=== PATIENT | male | born 1960 | race Caucasian/White ===

== ENCOUNTER 2024-06-01 23:50 | Inpatient (IN) | payer BC, MEDICARE, SELFPAY ==
[2024-06-01 17:23] VITALS: BP 170/100
[2024-06-01 17:41] LABS: % Eosinophils 4.5 % (0-6); % Immature Granulocytes 0.3 % (0-0.5); % Lymphocytes 20.2 % (20.5-51.1); % Monocytes 9.8 % (1.7-9.3); % Neutrophils 64.2 % (42.2-75.2); Absolute Basophils 0.1 10^3/uL (0-0.2); Absolute Eosinophils 0.3 10^3/uL (0-0.7); Absolute Lymphocytes 1.4 10^3/uL (1.2-3.4); Absolute Monocytes 0.7 10^3/uL (0.1-0.6); Absolute Neutrophils 4.3 10^3/uL (1.4-6.5); Hematocrit 43.1 % (39.0-52.0); Mean Corp Hgb Conc. 34.8 g/dL (33.0-37.0); Mean Corpuscular Hgb 33.1 pg (27.0-31.0); Mean Corpuscular Volume 95.1 fL (80.0-94.0); Mean Platelet Volume 9.5 fL (7.4-10.4); Nucleated Red Blood Cells % 0 % (-); Platelet Count 302 10^3/uL (130-400); Red Blood Cell Count 4.53 10^6/uL (4.70-6.10); Red Cell Dist. Width 13.4 % (11.5-14.5); White Blood Cell Count 6.7 10^3/uL (4.8-10.8)
[2024-06-01 17:54] LABS: ALT (SGPT) 36 U/L (0-50); AST (SGOT) 40 U/L (17-59); Albumin 4.4 g/dl (3.5-5.0); Alkaline Phosphatase 62 U/L (38-126); Blood Urea Nitrogen 20 mg/dl (9-20); Calcium 9.4 mg/dl (8.4-10.2); Carbon Dioxide 30 mmol/L (22-30); Chloride 99 mmol/L (98-107); Glucose 126 mg/dl (70-99); Lipase 152 U/L (23-300); Potassium 4.7 mmol/L (3.5-5.1); Sodium 136 mmol/L (135-145); Total Bilirubin 1.3 mg/dl (0.2-1.3); Total Protein 6.8 g/dl (6.3-8.2); eGFR > 60.00
[2024-06-01 21:38] VITALS: BMI 28.7
--- NOTE | 2024-06-01 22:25 | ED.GENMED ---
History of Present Illness
General
Chief Complaint: Abdominal Pain
Time Seen by Provider: 06/01/24 21:32
History of Present Illness
History of Present Illness:
64-year-old male presents to the emergency department for evaluation of right-sided abdominal pain that began after eating a playa bowl for lunch today. Pain gradually worsening throughout the day. No fevers chills or sweats. No prior abdominal
surgeries. No vomiting or diarrhea.
Past History
Past History
ED Past Medical History: Arrthythmia (Paroxysmal atrial fibrillation), Cancer (Skin), Hypercholesterolemia and Other (Osteoarthritis)
ED Past Surgical History: Orthopedic and Urological (Varicocele)
Social History
Tobacco: Non-smoker
Alcohol: Occasional
Personal:
Living: with family
Employment: Employed
Family History
Family History: Negative Early CAD
Review of Systems
Review of Systems
Allergies reviewed?: Yes
All Other Systems: ROS reviewed and negative except as documented in HPI and ROS
Phy Exam
Physical Exam
Physical Exam:
GEN: Well appearing, NAD, WDWN
HEENT: Oral mucosa moist, no scleral icterus
Cardiac: Regular rate
Lung: No respiratory distress, no tachypnea
Abdomen: Soft, moderate tenderness to the right upper quadrant with positive Nava sign, no rigidity or peritonitis
MSK: No gross deformity or injuries
Skin: Good color, no pallor or jaundice, no rashes
Neuro: AO x3, moves all extremities freely
Psych: Calm, cooperative
Course
Orders/Labs/Results
Orders:
Orders
06/01/24 17:30
Complete Blood Count/With Diff Urgent
Comprehensive Metabolic Panel Urgent
Lipase Urgent
06/01/24 22:24
US Abdomen Complete/Upper Urgent
Comment:
Reason For Exam: RUQ pain
06/01/24 23:16
HYDROmorphone [Dilaudid] 0.5 mg IV NOW STA
Piperacillin/Tazo 3.375 Gram [Zosyn] 3.375 gram in 50 ml IV NOW
06/01/24 23:33
Admit/Transfer Patient As Directed
Co-Sign Provider:
Level of Care: Inpatient admission
Assign to:: Telemetry
Physician / Group: doreen
Diagnosis: acute cholecystitis
Reason for Telemetry: Arrhythmia
Date to Stop Telemetry: 06/04/24
Time to Stop Telemetry: 11:00
Reason for Hospitalization: acute cholecystitis
Expected length of stay greater than two midnights?: Yes
ELOS- Estimated Length of Stay in days: 3
I certify the patient meets the requirements for IP care: Yes
PRN Pain Medication Management As Directed
May give lesser potent ordered pain med per pt: Yes
preference::
Protocol:: Medication orders for pain may be administered in a
manner that supports deferring to patient preference
when the pt is:
- Requesting an ordered lesser potent pain medication.
Least to most potent pain medications are defined
as: acetaminophen < NSAID < tramadol < opioids
(morphine, oxycodone, hydromorphone).
- Requesting a lesser dose of the same medication IF
ORDERED.
- Requesting a less intrusive route of administration
if both routes are prescribed by the provider (PO <
IV).
06/01/24 23:34
Code Status As Directed
Resuscitation Status: Full Code
06/01/24 23:37
EKG [Electrocardiogram (*1)] Stat
Reason for Study: Atrial Fibrillation
06/02/24 01:27
0.9% Sodium Chloride 1000 ml [Nss] 1,000 ml IV 80 mls/hr
Acetaminophen [Tylenol] 650 mg PO Q4HPRN PRN
Bisacodyl [Dulcolax] 10 mg RECTAL [id number] PRN
Docusate W/Senna [Senokot-S] 1 tablet PO BIDPRN PRN
HYDROmorphone [Dilaudid] 1 mg IV Q4HPRN PRN
Ondansetron Injectable [Zofran] 4 mg IV Q6HPRN PRN
Polyethylene Glycol Powder [Miralax] 17 grams PO DAILYPRN PRN
06/02/24 01:27
SURGICAL CONSULT Routine
Consulting Provider: Natna Hylton
Was physician already notified: Yes
Activity As Directed
Activity Level: As Tolerated
Pneumatic Compression Sleeves As Directed
Type: Knee high
Vital Signs As Directed
Frequency: Per unit guidelines
DX Deep Vein Thrombosis Video Routine
06/02/24 02:00
Piperacillin/Tazo 3.375 Gram [Zosyn] 3.375 gram in 50 ml IV Q6H
06/02/24 Breakfast
NPO
Allow oral meds: Yes
Allow clear liquids: No
06/02/24 12:00
Rosuvastatin Calcium [Crestor] 20 mg PO NOON
06/02/24 22:00
Metoprolol Xl [Toprol Xl] 25 mg PO HS
06/04/24 11:00
DC Protocol for Telemetry ONCE
Abnormal Lab Results
06/01/24
17:30
RBC 4.53 L 10^6/uL
(4.70-6.10)
MCV 95.1 H fL
(80.0-94.0)
MCH 33.1 H pg
(27.0-31.0)
Absolute Monos (auto) 0.7 H 10^3/uL
(0.1-0.6)
Lymphocytes % 20.2 L %
(20.5-51.1)
Monocytes % 9.8 H %
(1.7-9.3)
Glucose 126 H mg/dl
(70-99)
06/01/24 17:30
06/01/24 17:30
Vital Signs
Initial and Last Documented VS:
Initial Vital Signs
Temp Pulse Resp BP Pulse Ox
98.1 F 66 19 170/100 99
06/01/24 17:23 06/01/24 17:23 06/01/24 17:23 06/01/24 17:23 06/01/24 17:23
Last Documented Vital Signs
Temp Pulse Resp BP Pulse Ox
98.8 F 87 17 145/83 97
06/02/24 01:20 06/02/24 01:20 06/02/24 01:20 06/02/24 01:20 06/02/24 01:20
MDM/Problems Addressed
MDM/Problems Addressed:
Workup reveals acute cholecystitis, will admit to the hospitalist service due to multiple medical comorbidities, IV antibiotics initiated
*Critical Care Note
Total Time (30-74mins, 75-104mins- exclusive of procedures): Not Applicable
ED Attending Note
-
Portions of this chart may have been created with voice recognition software.� Occasional wrong word or��sound alike� substitutions may have occurred due to the inherent limitations of voice recognition software.
Discharge Plan
Departure
Patient Disposition: Admit
Date of Disposition: 06/01/24
Time of Disposition: 23:15
Presentation/result/management discussed w/ accepting MD/DO: Hospitalist
Discharge Problem:
Acute cholecystitis
Interventions
Interventions:
*Risk Screen - Suicide Last Done: 06/02/24 01:32
*General Assessment Last Done: 06/01/24 17:23
*Neglect/Abuse Screening Last Done: 06/01/24 17:23
*ED COVID-19 Vaccine History Last Done: 06/02/24 01:32
*Nursing Disposition Last Done: 06/02/24 01:15
SE-Rzhjxu-Hwudaxvoic Assessment Last Done: 06/01/24 21:38
Discharge Date and Time
Discharge Date/Time: 06/02/24 01:15
--- NOTE | 2024-06-01 23:18 | HPS.HSE ---
Addendum entered and electronically signed by Magno Lopez DO 06/01/24 23:57:
Patient seen and examined independently. Agree with findings and plan as set forth by LAURIE Martins.
Patient is a 64y M with PMH significant for hypertension, RA and PA-Fib who presents to ED complaining of RUQ abdominal pain. Pain started after lunch today. Patient states that discomfort progressed throughout the day and he developed shaking
chills.
Patient presented to the ED for evaluation where CT Scan showed evidence of acute cholecystitis.
Ass:
Acute Calculous Cholecystitis
Benign Hypertension
Rheumatoid Arthritis
Paroxysmal Atrial Fibrillation
Plan:
Admit for further evaluation and treatment.
IV abx, pain control, IVFs, etc.
Surgery evaluation for additional recommendations.
Hold MTX and Remicade acutely.
Patient is not on chronic OAC despite PA-Fib diagnosis.
Continue metoprolol with holding parameters.
Original Note:
Family Physician
-
Family Physician: Ahsan De La Cruz
Chief Complaint
-
right sided abdominal pain
History of Present Illness
64-year-old male with PMH for paroxysmal atrial fib, HTn, RA, HLD presents to the emergency department for evaluation of right-sided abdominal pain that began after eating a playa bowl for lunch today. Pain gradually worsening throughout the day.
No fevers. stated chills and COLBY. stated some nausea. denied vomiting and diarrhea. denied dizzy or syncope. denied chest pain, sob. denied dysuria or hematuria.
CT with acute cholecystitis. received Zosyn and Dilaudid in the ER. admitting for further management.
Medical History
Past Medical History
Past Medical History: Reports Other
Additional Past Medical History:
BPH
HLD
RA
paroxysmal atrial fib
b/l carotid stenosis
htn
Past Surgical History: Reports Other
Additional Past Surgical History:
tonsillectomy
ankle surgery
knee surgery
stage 1 melanoma removed
Social History
Tobacco: Non-smoker
Alcohol: Occasional
Drug: None
Personal:
Living: With Family
Family History
Family History: Not pertinent
Allergies / Home Medications
Allergies reflects when Allergies were last updated in [facility].
Home Medications with original date entered in [facility]
Allergy/Medication List:
Allergies
Allergy/AdvReac Type Severity Reaction Status Date / Time
shellfish derived Allergy swelling Verified 11/24/18 15:22
of eyes
and throat
Home Medications
acetaminophen 500 mg tablet (Tylenol Extra Strength) 1,000 mg PO Q6HPRN PRN mild pain 06/01/24
cholecalciferol (vitamin D3) 50 mcg (2,000 unit) tablet (Vitamin D3) 50 mcg PO DAILY 06/01/24
folic acid 1 mg tablet 1 mg PO DAILY 06/01/24
infliximab 100 mg intravenous solution (Remicade) 0 mg IV Q8W 06/01/24
methotrexate sodium 2.5 mg tablet 10 mg PO TH 06/01/24
metoprolol succinate 25 mg tablet,extended release 24 hr 25 mg PO HS 06/01/24
rosuvastatin 20 mg tablet 20 mg PO NOON 06/01/24
sildenafil 100 mg tablet 100 mg PO DAILYPRN PRN ed 06/01/24
Review of Systems
-
Constitutional: Reports No Symptoms
EENT: Reports No Symptoms
Respiratory: Reports No Symptoms
Cardiac: Reports No Symptoms
Abdomen/GI: Reports Abdominal Pain and Nausea
: Reports No Symptoms
Musculoskeletal: Reports No Symptoms
Skin: Reports No Symptoms
Neurological: Reports No Symptoms
Endocrine: Reports No Symptoms
Hematologic/Lymphatic: Reports No Symptoms
Psych: Reports No Symptoms
Physical Exam
Vital Signs
Vital Signs
Temp Pulse Resp BP Pulse Ox
98.1 F 66 19 170/100 99
06/01/24 17:23 06/01/24 17:23 06/01/24 17:23 06/01/24 17:23 06/01/24 17:23
Physical Exam
General: Well Developed, Well Nourished and No Apparent Distress
HEENT: NormoCephalic, Moist mucous membranes and Atraumatic
Respiratory: Clear
Cardiac: S1/S2 and Regular Rhythm; No Murmur or Rub
GI: Soft, Non Distended, Normal Bowel Sounds and Tender; No Organomegaly
Rectal: Deferred by Provider
Musculoskeletal: No Clubbing, No Cyanosis and No Edema
Skin: No Rash
Neuro: AO x 3 and Nonfocal/grossly intact
Psych: Calm
Laboratory Results
-
06/01/24 17:30
06/01/24 17:30
Laboratory Results
Total Bilirubin 1.3 mg/dl (0.2-1.3) 06/01/24 17:30
AST 40 U/L (17-59) 06/01/24 17:30
ALT 36 U/L (0-50) 06/01/24 17:30
Alkaline Phosphatase 62 U/L (38-126) 06/01/24 17:30
Lipase 152 U/L (23-300) 06/01/24 17:30
Data Reviewed
-
CT Scan: Report Reviewed by me
Lab Data: Labs Reviewed by me
Impression/Plan
-
#acute cholecystitis
-keep patient NPO
-fluids continued for hydration
-Zosyn continued
-Dilaudid prn for pain
-Zosyn prn for n/v
-surgery consulted
-abdominal US with Gallstones with associated mild gallbladder wall thickening. This can be seen with acute cholecystitis. Clinical and laboratory correlation recommended.Nonvisualization of pancreas, proximal IVC and abdominal aorta.Hepatic fatty
infiltration.
#paroxysmal atrial fib
-obtain EKG
-metoprolol continued
-not on AC
#RA
-on Remicade and methotrexate
#HLD
-Crestor continued
#DVT prophylaxis
-scd
#CODE status
-full code
[2024-06-01 23:27] VITALS: BP 152/88
--- NOTE | 2024-06-01 23:41 | EDRN ---
This RN unable to complete electronic med administration due to message stating 'We are sorry, but some of the information managed by this screen is currently being updated by: shirlene martin.' Provider no longer here at this time.
0.5mg IV diluadid administered at 2328
3.375mf IV zosyn administered at 2331
[2024-06-02] VITALS (11 sets, daily range): BP systolic 95–145; BP diastolic 49–83; BMI 29.4
--- NOTE | 2024-06-02 01:29 | PTCARENOTE ---
Pt arrive to [facility] at 0115 from the ED in a wheelchair and walked into bed. Full head to toe complete. Skin CDI. SCDs set up on pt. Pt oriented to room and call mendoza. Bed locked and in lowest position. Care ongoing.
[2024-06-02] MEDS: NSS 1000 IV ×2 (01:53→17:34)
[2024-06-02] MEDS: DILAUDID 1 MG IV (02:51)
[2024-06-02] MEDS: ZOSYN 50 IV ×3 (05:51→17:32)
--- NOTE | 2024-06-02 08:42 | W.PN.HOSP.TC ---
Today's Communication/Plan
-
Laparoscopic Cholecystectomy as per surgery
follow up post-op recommendations.
Assessment / Plan
Assessment / Plan
64-year-old male with PMH for paroxysmal atrial fib, HTn, RA, HLD presents to the emergency department for evaluation of right-sided abdominal pain that began shortly after eating. Pain gradually worsening throughout the day with associate nausea.
CT with acute cholecystitis. received Zosyn and Dilaudid in the ER. Admitted for further management.
#acute cholecystitis
-NPO
-IVF
-Zosyn continued
-Dilaudid prn for pain
-Zosyn prn for n/v
-abdominal US with Gallstones with associated mild gallbladder wall thickening. This can be seen with acute cholecystitis. Clinical and laboratory correlation recommended.Nonvisualization of pancreas, proximal IVC and abdominal aorta.Hepatic fatty
infiltration.
-surgery consult appreciated for OR today 06/02/24 Laparoscopic cholecystectomy
#paroxysmal atrial fib
-EKG appreciated NSR
-metoprolol continued
-not on AC
#RA
-on Remicade and methotrexate
#HLD
-Crestor continued
#DVT prophylaxis
-scd
#CODE status
-full code
I spent a total of 35 minutes with the patient or on the floor. More than 50% of this time involved counseling and coordination of care.
Anticipated Discharge: 24 - 48 hours
Subjective/Interval History
-
Date of Service: June 02, 2024
Not seen, patient away in OR at time of evaluation. Records reviewed and orders updated as necessary.
Objective Data
-
Vital Signs:
Vital Signs
Temp Pulse Resp BP Pulse Ox
98.2 F 78 18 117/64 98
06/02/24 08:00 06/02/24 08:00 06/02/24 08:00 06/02/24 08:00 06/02/24 08:00
I&O
06/01/24 06/02/24 06/03/24
06:59 06:59 06:59
Intake Total 400 / 400
Balance 400 / 400
--- NOTE | 2024-06-02 09:03 | CON.GS ---
Consultation
-
Date/Time Consultation Requested: 06/02/2024 1 AM
Date/Time Consultation Performed: 06/02/2024 8 AM
Requesting Provider: Hospitalist
Performing Provider: Dr. Ulloa
Reason for Consultation: Acute cholecystitis
Medical History
-
Chief Complaint: Right upper quadrant abdominal pain
History of Present Illness:
This is a 64-year-old male with a history of rheumatoid arthritis on methotrexate and Remicade as well as paroxysmal atrial fibrillation not on anticoagulation who presents with a 1 day history of postprandial right upper quadrant pain. Has not had
any similar symptoms previously. He had an ultrasound here which demonstrated multiple gallstones and mild gallbladder wall thickening. The patient denies Fever, Chest Pain, Shortness Of Breath, Nausea, Vomiting, changes in urinary and bowel
habits, unintentional weight loss, jaundice, icterus, acolic stools.
Past Medical History
Past Medical History: Other (RA, hypertension, paroxysmal A-fib)
Past Surgical History: None
Social History
Tobacco: Non-Smoker
Alcohol: None
Drug: None
Personal:
Living: With Family
Family History
Family History: Reviewed & Not Pertinent
Allergies / Home Medications
Allergy/AdvReac Type Severity Reaction Status Date / Time
shellfish derived Allergy swelling Verified 11/24/18 15:22
of eyes
and throat
�Medication �Instructions �Recorded �Confirmed �Type
acetaminophen 500 mg tablet 1,000 mg PO Q6HPRN PRN mild pain 06/01/24 06/01/24 History
(Tylenol Extra Strength)
cholecalciferol (vitamin D3) 50 50 mcg PO DAILY 06/01/24 06/01/24 History
mcg (2,000 unit) tablet (Vitamin
D3)
folic acid 1 mg tablet 1 mg PO DAILY 06/01/24 06/01/24 History
infliximab 100 mg intravenous 0 mg IV Q8W 06/01/24 06/01/24 History
solution (Remicade)
methotrexate sodium 2.5 mg tablet 10 mg PO TH 06/01/24 06/01/24 History
metoprolol succinate 25 mg 25 mg PO HS 06/01/24 06/01/24 History
tablet,extended release 24 hr
rosuvastatin 20 mg tablet 20 mg PO NOON 06/01/24 06/01/24 History
sildenafil 100 mg tablet 100 mg PO DAILYPRN PRN ed 06/01/24 06/01/24 History
Review of Systems
-
All other systems: Negative unless noted
A 10 point review of systems was completed, and was negative except as per HPI.
Physical Exam
Vital Signs
Temp Pulse Resp BP Pulse Ox
98.2 F 78 18 117/64 98
06/02/24 08:00 06/02/24 08:00 06/02/24 08:00 06/02/24 08:00 06/02/24 08:00
06/01/24 06/02/24 06/03/24
06:59 06:59 06:59
Actual Weight 92.805 kg
Body Mass Index (BMI) 29.4
Lab Results
06/01/24 17:30
06/01/24 17:30
WBC 6.7 10^3/uL (4.8-10.8) 06/01/24 17:30
Hgb 15.0 g/dL (13.0-18.0) 06/01/24 17:30
Hct 43.1 % (39.0-52.0) 06/01/24 17:30
Plt Count 302 10^3/uL (130-400) 06/01/24 17:30
Abs Immat Gran (auto) 0.0 10^3/uL (0-0.05) 06/01/24 17:30
Neutrophils % 64.2 % (42.2-75.2) 06/01/24 17:30
Physical Exam
General: Well Developed
HEENT: Normocephalic
Respiratory: Non Labored Respirations
GI: Soft, Non Distended and Tender
Data Reviewed
-
CT Scan: Image Personally Visualized and interpreted
Ultrasound: Image Personally Visualized and interpreted and Discussed with Patient
Labs: Labs Reviewed by me and Discussed with Patient
Total Time Spent with Patient (in minutes): 50
Assessment / Plan
-
This is a 64-year-old male who presents with a 1 day history of postprandial right upper quadrant pain. Exam, blood work, imaging all consistent with early acute cholecystitis.
Recommended surgical removal of the gallbladder with a laparoscopic cholecystectomy.
Patient is somewhat tentative, we did discuss different alternatives including nonoperative management with just antibiotics alone. I explained this is a high risk for failure, complications, morbidity and even mortality. Patient wishes to discuss
this further with his .
For now we will continue with nonoperative management, n.p.o., IV fluids, IV antibiotics.
General surgery will continue to follow. If patient wishes to pursue surgery, would plan for OR today.
I spent 60 minutes in total for the care of this patient today including direct patient care and counseling, reviewing labs, imaging, coordination of care, as well as documentation.
--- NOTE | 2024-06-02 11:55 | CM ---
Alert awake oriented patient who lives with his Geno who lives in a 3 story home with 2 step to enter and bed and bathroom on first floor. He is independent in driving and in all activities of daily living [employer]PATCH[employer] .Pt for surgery today spoke with
. She declined VN when offered.
No VN hx / No SNF history
Pharmacy [facility] [address] Yap
PLAN Home Declined VN
[2024-06-02] MEDS: CRESTOR PO (12:03)
--- NOTE | 2024-06-02 14:30 | W.SUR.PREOP ---
Pre-Operative Surgical Note
-
I have examined this patient prior to the performance of the scheduled procedure.
The patient's condition is unchanged from the time of the current History and
Physical and the patient is able to undergo the scheduled procedure.
--- NOTE | 2024-06-02 15:50 | W.IMMPOSTOP ---
Surgical Immed Post Op Note
-
Primary Surgeon: Eduard Ulloa MD
Assisting Surgeon: None
Pre-op Diagnosis: Acute cholecystitis
Post-op Diagnosis: Gangrenous cholecystitis
Procedure Performed: 1. Laparoscopic cholecystectomy with cholangiogram
Anesthesia Type: General
Specimen / Cultures: Gallbladder and contents
Estimated Blood Loss: 3 cc
Complications: None
Operative Findings: Gangrenous cholecystitis. Critical view of safety obtained prior to a cholangiogram which demonstrated no filling defects. The cystic duct is taken with a clip followed by a 0 PDS Endoloop. Minimal spillage of bile
POST OP PLAN:
Imaging: None
Labs: Routine AM
Diet: Advance to Regular as tolerated
Analgesia: Tylenol 650mg q6 Yareli, Clarissa 5mg q6 PRN, Dilaudid 0.5mg q2h PRN
Neuro/vascular checks: q4h
AC/AP: Hold Therapeutic AC, Ok for DVT PPx
Activity: Ad Melinda
Wound/Incisions/Drains: Routine
Abx: Will cover with 4 days of antibiotics.
Dispo: RNF, anticipate discharge home tomorrow.
--- NOTE | 2024-06-02 15:53 | OR.RPT ---
Operative Report
Operative Report
Patient Name: Jose Woods
: 1960
Date of Operation: 06/02/2024
Preoperative Diagnosis: Acute cholecystitis
Postoperative Diagnosis: Gangrenous cholecystitis
Procedure(s):
Laparoscopic Cholecystectomy with Cholangiogram
Surgeon(s):
Dr. Ulloa
Fish And Wildlife Warden(s):
GABBI Billy
Anesthesia: General
Estimated Blood Loss: 3 cc
Urine Output: None
Drains/Lines/Implants: None
Specimens:
1. Gallbladder and contents
HPI/Surgical Indications:
This is a 64-year-old male who presents with a few days of right upper quadrant abdominal pain. Exam, labs and imaging are consistent with acute cholecystitis. Risks/Benefits/Alternatives were discussed at length, and the patient eventually agreed
to proceed with surgery.
Operative Findings: Gangrenous cholecystitis. Critical view of safety obtained prior to a cholangiogram which demonstrated no filling defects. The cystic duct is taken with a clip followed by a 0 PDS Endoloop. Minimal spillage of bile
Procedure Description:
The patient was brought to the Operating Room and placed in the supine position with one arm tucked. Following uneventful induction of general endotracheal anesthesia, an orogastric tube was placed. The abdomen was prepped and draped in the usual
sterile fashion. A timeout was performed confirming the procedure, consent, and that IV antibiotics were infused and sequential compression devices were confirmed to be on. The abdomen was entered using an infraumbilical open Chandra technique with
a 12 mm balloon-tipped trocar. Pneumoperitoneum to 15 mmHg pressure was obtained without difficulty and we confirmed that no injury had occurred during our entry. The patient was positioned in reverse Trendelenberg and rotated with the right side
up slightly. Three (3) 5mm trocars were then placed along the right subcostal margin. The gallbladder was emptied using a decompressing needle through the fundus of the gallbladder with evacuation of hydrops before A locking grasping forceps was
placed on the fundus of the gallbladder where it was then retracted cephalad and to the right. The gallbladder was noted to be gangrenous with patchy areas of necrosis throughout the visualized wall. Using appropriate grasping instruments, the
peritoneum overlying the triangle of Calot was incised and extended superiorly on both the anterior and posterior gallbladder richardson. The infundibulum was dissected off the cystic plate. The cystic triangle was dissected until a critical view of
safety was achieved. The cystic artery was medialized, dissected and controlled with 2 proximal clips and 1 distal. The cystic duct/gallbladder junction in turn was identified, dissected circumferentially and a clip was placed. A ductotomy was made
and a cholangiocatheter on an Yang clamp was inserted into the cystic duct. A C-arm was draped and brought into the field. An intra-operative cholangiogram was performed and though the initial run leaked, the second run was noted to have:
No filling defects in the biliary tree
No significant biliary dilation
Brisk flow of contrast into the duodenum
Normal biliary anatomy
The catheter was then removed and the cystic duct was controlled with a clip followed by a 0 PDS Endoloop. After ensuring both the artery and duct were divided, the gallbladder was freed from the liver using electrocautery. There was some spillage
of bile, but no spillage of stones. The gallbladder bed was inspected and excellent hemostasis was obtained. The gallbladder was extracted through the 12 mm trocar site using an endocatch bag. The abdomen was again irrigated and excellent
hemostasis was assured. All remaining trocars were then removed and the pneumoperitoneum was evacuated. The 12 mm trocar site was closed using 0 PDS suture. We confirmed laparoscopically that the closure was airtight and no underlying bowel had
been cotton or suture. All trocar sites were closed at the skin level using 4-0 Monocryl followed by Dermabond. Overall, the patient tolerated the procedure well and was taken to the Recovery Room postoperatively in stable condition.
I was the attending physician and performed the procedure with assistance from the INCIDENT ANALYST above. I was present for all portions of the case
Eduard Ulloa MD
--- NOTE | 2024-06-02 17:17 | PTCARENOTE ---
Pt returned to 2S in bed. Abdominal lap sites C/D/I, glued and BLADE BALANCER. Pt educated on regular diet, verbalized understanding. IVF infusing per order. Bed locked and in the lowest position, safety maintained. Oriented to room and call mendoza, spouse at
bedside.
[2024-06-02] MEDS: TOPROL XL 25 MG PO (21:24)
[2024-06-03] MEDS: ZOSYN 50 IV ×3 (00:07→13:01)
[2024-06-03 03:10] VITALS: BP 95/55
[2024-06-03 06:13] LABS: Hemoglobin 13.1 g/dL (13.0-18.0); Mean Corp Hgb Conc. 33.6 g/dL (33.0-37.0); Mean Corpuscular Hgb 32.5 pg (27.0-31.0); Mean Corpuscular Volume 96.8 fL (80.0-94.0); Mean Platelet Volume 9.6 fL (7.4-10.4); Platelet Count 233 10^3/uL (130-400); Red Blood Cell Count 4.03 10^6/uL (4.70-6.10); Red Cell Dist. Width 13.6 % (11.5-14.5); White Blood Cell Count 9.8 10^3/uL (4.8-10.8)
[2024-06-03 06:40] LABS: ALT (SGPT) 43 U/L (0-50); AST (SGOT) 43 U/L (17-59); Albumin 3.4 g/dl (3.5-5.0); Alkaline Phosphatase 65 U/L (38-126); Blood Urea Nitrogen 15 mg/dl (9-20); Calcium 8.7 mg/dl (8.4-10.2); Carbon Dioxide 27 mmol/L (22-30); Chloride 102 mmol/L (98-107); Estimated Creatinine Clearance 94 ml/min; Glucose 143 mg/dl (70-99); Magnesium 2.6 mg/dl (1.6-2.3); Phosphorus 2.9 mg/dl (2.5-4.5); Potassium 4.4 mmol/L (3.5-5.1); Sodium 135 mmol/L (135-145); Total Bilirubin 2.5 mg/dl (0.2-1.3); Total Protein 5.7 g/dl (6.3-8.2); eGFR > 60.00
[2024-06-03 07:11] VITALS: BP 123/66
[2024-06-03] MEDS: NSS IV (09:31)
[2024-06-03 11:28] VITALS: BP 126/72
--- NOTE | 2024-06-03 11:28 | W.PN.GS2 ---
Today's Communication / Plan
-
DC home after recheck of his LFTs to confirm his bilirubin is decreasing
Assessment / Plan
-
This is a 64-year-old male with a history of Gilbert's syndrome who presents with 1 day history of postprandial right upper quadrant pain found to have acute cholecystitis. Now postoperative day 1 from a laparoscopic cholecystectomy and
cholangiogram for gangrenous cholecystitis. Doing well, expected postoperative course.
His bilirubin is slightly elevated to 2.5 but I suspect this is likely from his Gilbert's disease. Will recheck his LFTs this afternoon to confirm.
Otherwise clinically well, anticipate discharge home today.
Time Spent
Total Time Spent with Patient (in minutes): 20
Subjective Data
-
Date of Service: June 03, 2024
Interval Events:
No acute events overnight. Slept well. Pain Controlled. Denies Nausea/Vomiting, +bowel function. Tolerating diet.
Objective Data
-
Intake and Output
06/02/24 06/03/24 06/04/24
06:59 06:59 06:59
Intake Total 400 / 400 3000 / 3000
Balance 400 / 400 3000 / 3000
Intake:
Oral fluids 1280 / 1280
IV fluids (Total) 400 / 400 1520 / 1520
IV piggybacks 200 / 200
Other:
Number of approximated MODERATE 1 3
amounts of urine
Vital Signs
Temp Pulse Resp BP Pulse Ox
98.0 F 64 16 123/66 97
06/03/24 07:11 06/03/24 07:11 06/03/24 07:11 06/03/24 07:11 06/03/24 07:11
Lab Results
06/03/24 05:38
Calcium 8.7 mg/dl (8.4-10.2) 06/03/24 05:38
Phosphorus 2.9 mg/dl (2.5-4.5) 06/03/24 05:38
Magnesium 2.6 mg/dl (1.6-2.3) H 06/03/24 05:38
Total Bilirubin 2.5 mg/dl (0.2-1.3) H D 06/03/24 05:38
AST 43 U/L (17-59) 06/03/24 05:38
ALT 43 U/L (0-50) 06/03/24 05:38
Alkaline Phosphatase 65 U/L (38-126) 06/03/24 05:38
Total Protein 5.7 g/dl (6.3-8.2) L 06/03/24 05:38
Albumin 3.4 g/dl (3.5-5.0) L 06/03/24 05:38
Physical Exam
-
GENERAL/NEURO: Awake, Alert, no distress
CHEST: Unlabored breathing on RA
ABDOMEN: Soft, Non-Tender, Non-Distended, incisions clean dry and intact.
--- NOTE | 2024-06-03 12:18 | W.PN.HOSP.TC ---
Addendum entered and electronically signed by Krupa Madrid MD 06/03/24 16:54:
Repeat LFT results discussed with surgeon mild increase in bilirubin noted. As per discussion, patient otherwise stable for discharge with repeat lab work recommended in 2-3 days (script provided to facilitate)
Original Note:
Today's Communication/Plan
-
discharge
Assessment / Plan
Assessment / Plan
Physical Exam
General: Well Developed, Well Nourished and No Apparent Distress
HEENT: NormoCephalic, Moist mucous membranes and Atraumatic
Respiratory: Clear
Cardiac: S1/S2 and Regular Rhythm; No Murmur or Rub
GI: Soft, Non Distended, Bowel sounds present. Mild tenderness laparoscopic surgical site umbilical area.
Musculoskeletal: No Clubbing, No Cyanosis and No Edema
Skin: No Rash
Neuro: AO x 3 and Nonfocal/grossly intact
Psych: Calm
64-year-old male with PMH for paroxysmal atrial fib, HTn, RA, HLD presents to the emergency department for evaluation of right-sided abdominal pain that began shortly after eating. Pain gradually worsening throughout the day with associate nausea.
CT with acute cholecystitis. received Zosyn and Dilaudid in the ER. Admitted for further management.
#acute cholecystitis
#gangrenous cholecystitis
-abdominal US with Gallstones with associated mild gallbladder wall thickening. This can be seen with acute cholecystitis. Clinical and laboratory correlation recommended.Nonvisualization of pancreas, proximal IVC and abdominal aorta.Hepatic fatty
infiltration.
-surgery consult appreciated s/p Laparoscopic cholecystectomy 06/02/24
-Tolerating regular diet
-IVF completed
-Zosyn completed
-Pain and nausea free
#Mild Bilirubin elevation noted post-procedure, likely Gilbert's Syndrome
repeat CMP in 2-3 days recommended, results to be forwarded to primary care provider and surgeon (script provided to facilitate)
#hx paroxysmal atrial fib
-EKG appreciated NSR
-metoprolol continued
-not on AC
#RA
-on Remicade and methotrexate
#HLD
-Crestor continued
#DVT prophylaxis
-scd
#CODE status
-full code
Medically stable for discharge home with outpatient follow up recommendations.
Total Time Preparing Discharge ___40____ minutes including examination of the patient, summary of the hospital stay, instructions for continuing care to all relevant caregivers; and preparation of discharge records, prescriptions, and referral
forms if necessary.
Anticipated Discharge: Today
Subjective/Interval History
-
Date of Service: June 03, 2024
Seen and examined at bedside in no acute distress. Reports overall feeling well. Pain resolved. Ambulating without issues. Eager to go home.
Objective Data
-
Labs:
Laboratory Results
06/03/24 06/03/24
05:38 12:46
WBC 9.8
Hgb 13.1
Hct 39.0
Plt Count 233 D
Sodium 135 Pending
Potassium 4.4 Pending
Chloride 102 Pending
Carbon Dioxide 27 Pending
BUN 15 Pending
Creatinine 0.8 Pending
Glucose 143 H Pending
Calcium 8.7 Pending
Total Bilirubin 2.5 H D Pending
AST 43 Pending
ALT 43 Pending
Alkaline Phosphatase 65 Pending
Vital Signs:
Vital Signs
Temp Pulse Resp BP Pulse Ox
97.9 F 66 14 126/72 96
06/03/24 11:28 06/03/24 11:28 06/03/24 11:28 06/03/24 11:28 06/03/24 11:28
I&O
06/02/24 06/03/24 06/04/24
06:59 06:59 06:59
Intake Total 400 / 400 3000 / 3000
Balance 400 / 400 3000 / 3000
[2024-06-03] MEDS: CRESTOR 20 MG PO (13:01)
[2024-06-03 13:03] LABS: ALT (SGPT) 47 U/L (0-50); AST (SGOT) 48 U/L (17-59); Alkaline Phosphatase 76 U/L (38-126); Blood Urea Nitrogen 14 mg/dl (9-20); Calcium 9.2 mg/dl (8.4-10.2); Carbon Dioxide 27 mmol/L (22-30); Chloride 101 mmol/L (98-107); Estimated Creatinine Clearance 94 ml/min; Glucose 101 mg/dl (70-99); Potassium 4.4 mmol/L (3.5-5.1); Sodium 136 mmol/L (135-145); Total Bilirubin 2.7 mg/dl (0.2-1.3); Total Protein 6.6 g/dl (6.3-8.2); eGFR > 60.00
[2024-06-03 15:29] VITALS: BP 131/67
--- NOTE | 2024-06-03 16:54 | W.DCSUMMARY ---
Discharge Summary
Discharge Data
Date of Admission: 06/01/24
Date of Discharge: 06/03/24
-
Pending Results: No
Hospital Course
64-year-old male with PMH for paroxysmal atrial fib, HTn, RA, HLD presented to the emergency department for evaluation of right-sided abdominal pain that began shortly after eating. Pain gradually worsening throughout the day with associate
nausea. CT with acute cholecystitis. received Zosyn and Dilaudid in the ER. Admitted for further management. Acute gangrenous cholecystitis, abdominal US with Gallstones associated mild gallbladder wall thickening, correlated with acute
cholecystitis. Nonvisualization of pancreas, proximal IVC and abdominal aorta. Hepatic fatty infiltration. Surgery evaluated and performed Laparoscopic cholecystectomy 06/02/24. Tolerating regular diet following procedure. IVF support
completed. Empiric Zosyn completed. Mild Bilirubin elevation noted post-procedure, likely Gilbert's Syndrome
repeat CMP in 2-3 days recommended, results to be forwarded to primary care provider and surgeon (script provided to facilitate). Symptomatically improved, medically stable, patient was discharged home with outpatient follow up recommendations.
Discharge Plan
-
Patient Disposition: Home (Routine Discharge)
Discharge Diagnosis/Procedures: Acute cholecystitis. Laparoscopic cholecystectomy
Condition: Good
Diet: No restrictions
Activity: No strenuous activity
Driving Restrictions: As prior to admission
Bathing Restrictions: OK to Shower
Blood Work: Please repeat CMP in 2-3 days of discharge. Results to be forwarded to primary care provider and surgeon. Script provided to facilitate
Activity Restrictions/Additional Instructions:
Please follow up with primary care provider in 1 week of discharge and surgeon in 2-4 weeks.
Instructions following Laparoscopic Cholecystectomy
Please call [phone] if you have any questions or concerns after your surgery.
Wound Care:
Your incisions are covered with skin glue which will come off on its own in 5-10 days.
It is ok to shower the day after your surgery. Do not scrub the incisions, let soap and water wash over them and pat dry.
� Bruising around your incisions is normal.
� Using ice packs will help minimize this swelling.
� No swimming or soaking incisions for 1 week.
� Your stitches will dissolve and do not need to be removed.
Urinary retention:
If you are unable to urinate 6-8 hours after your surgery, please call [phone] to discuss further management.
Activity:
No heavy lifting more than 15 pounds for the next 3 weeks, then you may gradually lift heavier objects as tolerated by discomfort. Otherwise activity as tolerated by your comfort level.
Pain Management:
Use Tylenol, ibuprofen and ice packs to treat your pain.
� You may take 650 milligrams of Tylenol (Max 3 grams per day) every 6 hours, and 600 mg of ibuprofen also every 6 hours. (you can alternate them every 3 hours)
� You may use an ice pack to your incision as needed.
� If you still have pain not controlled by these measures, take your prescription pain medication as prescribed.
Medications:
You may resume your home medications.
Bowel Medications:
Prescription pain medication can make you constipated. If you take this medication, also take colace 100 mg twice daily (this is over the counter). If this is not sufficient, you may take Miralax (polyethylene glycol) to help move your bowels.
Diet:
After your procedure, there are no dietary restrictions. However, you may notice some loose stools with fatty meals for up to 4 weeks after surgery. If this is the case, please adjust to a low fat diet as needed.
Driving restrictions:
No driving if you are taking prescription pain medication or if you think your normal reaction time and attentiveness has been slowed by your surgery.
Things to Look out for:
Worsening Abdominal pain, fever, jaundice, redness or drainage from incision
Call Doctor for:
Please call if you notice worsening redness or drainage from incision(s) lasting longer than 5 days after your surgery, any foul-smelling drainage from the incision, pain not controlled by pain medications, persistent nausea and vomiting, or for any
fevers greater than 101.3 F. The number for questions/concerns is [phone]
Follow-up:
A follow-up appointment will be scheduled with your surgeon in 3-4 weeks. Please call prior to your appointment if you have any questions or concerns. [phone]
Referrals:
Ahsan De La Cruz I., [Family Provider] - in one week
Eduard Ulloa MD [Active] - in two to four weeks
Prescriptions:
New
acetaminophen 325 mg tablet
650 mg PO Q6HPRN PRN (Reason: mild pain) Qty: 14 0RF
tramadol 50 mg tablet
25 mg PO Q6HPRN PRN (Reason: severe pain/breakthrough pain) Qty: 8 0RF
ibuprofen 600 mg tablet
600 mg PO Q6H PRN (Reason: pain) Qty: 14 0RF
Continued
acetaminophen [Tylenol Extra Strength] 500 mg Tablet
1,000 mg PO Q6HPRN PRN (Reason: mild pain)
sildenafil 100 mg Tablet
100 mg PO DAILYPRN PRN (Reason: ed)
methotrexate sodium 2.5 mg Tablet
10 mg PO TH
infliximab [Remicade] 100 mg Recon Soln
0 mg IV Q8W
folic acid 1 mg Tablet
1 mg PO DAILY
metoprolol succinate 25 mg Tablet Extended Release 24 Hr
25 mg PO HS
rosuvastatin 20 mg Tablet
20 mg PO NOON
cholecalciferol (vitamin D3) [Vitamin D3] 50 mcg (2,000 unit) Tablet
50 mcg PO DAILY
Discharge Orders:
Discharge Patient (As Directed); Ordered 06/03/24
Ordered By: Krupa Madrid
Discharge Date and Time
Discharge Date/Time: 06/03/24 17:30
Print Language: VENEZUEL[place]
== END 2024-06-03 17:30 | disposition home or self-care (01) | DRG 419 ==
LOC: 2 SOUTH 23:50
PROVIDERS: Physician Assistant; ADMITTING PHYSICIAN Hospitalist; ATTENDING PHYSICIAN Internal Medicine; EMERGENCY PHYSICIAN Emergency Medicine; FAMILY PHYSICIAN Internal Medicine; OTHER PHYSICIAN Surgery
PROC: 0FT44ZZ Resection of Gallbladder, Percutaneous Endoscopic Approach (ICD-10-PCS; 2024-06-02)
DX: K80.00 Calculus of gallbladder with acute cholecystitis without obstruction (principal); I48.0 Paroxysmal atrial fibrillation; I10 Essential (primary) hypertension; M06.9 Rheumatoid arthritis, unspecified; E78.00 Pure hypercholesterolemia, unspecified
CPT/HCPCS: 88304; 74300; 76000; 76700; 80053; 83690; 83735; 84100; 85025; 85027; 93005; 99285; A4300

== ENCOUNTER → 2024-09-08 13:50 | Outpatient (REF) | payer BC, SELFPAY | LOC: HWRCS 13:50 | PROVIDERS: ATTENDING PHYSICIAN Internal Medicine Cardiovascular Disease; FAMILY PHYSICIAN Internal Medicine | DX: I77.810 Thoracic aortic ectasia (principal); I65.23 Occlusion and stenosis of bilateral carotid arteries | CPT/HCPCS: 93306; 93880 ==

== ENCOUNTER → 2024-11-16 10:52 | Outpatient (REF) | payer BC, SELFPAY ==
[2024-11-16 11:19] LABS: % Basophils 1.5 % (0-2); % Immature Granulocytes 0.2 % (0-0.5); % Lymphocytes 28.7 % (20.5-51.1); % Neutrophils 51.6 % (42.2-75.2); Absolute Basophils 0.1 10^3/uL (0-0.2); Absolute Eosinophils 0.5 10^3/uL (0-0.7); Absolute Lymphocytes 1.5 10^3/uL (1.2-3.4); Absolute Monocytes 0.5 10^3/uL (0.1-0.6); Absolute Neutrophils 2.7 10^3/uL (1.4-6.5); Hemoglobin 14.8 g/dL (13.0-18.0); Mean Corp Hgb Conc. 34.4 g/dL (33.0-37.0); Mean Corpuscular Hgb 32.7 pg (27.0-31.0); Mean Corpuscular Volume 94.9 fL (80.0-94.0); Mean Platelet Volume 9.8 fL (7.4-10.4); Nucleated Red Blood Cells % 0 % (-); Platelet Count 304 10^3/uL (130-400); Red Blood Cell Count 4.53 10^6/uL (4.70-6.10); Red Cell Dist. Width 13.1 % (11.5-14.5); White Blood Cell Count 5.2 10^3/uL (4.8-10.8)
[2024-11-16 11:47] LABS: ALT (SGPT) 31 U/L (0-50); AST (SGOT) 30 U/L (17-59); Albumin 4.2 g/dl (3.5-5.0); Alkaline Phosphatase 70 U/L (38-126); Blood Urea Nitrogen 18 mg/dl (9-20); Calcium 9.6 mg/dl (8.4-10.2); Carbon Dioxide 25 mmol/L (22-30); Chloride 107 mmol/L (98-107); Glucose 94 mg/dl (70-99); Potassium 4.7 mmol/L (3.5-5.1); Sodium 138 mmol/L (135-145); Total Bilirubin 1.7 mg/dl (0.2-1.3); Total Protein 6.6 g/dl (6.3-8.2); eGFR > 60.00
[2024-11-16 12:01] LABS: C-Reactive Protein < 5.00 mg/L (0.0-10.00)
[2024-11-16 12:06] LABS: LDH 185 U/L (120-246)
[2024-11-16 12:25] LABS: Erythrocyte Sed Rate 6 mm/hour (0-20)
== END ==
LOC: REG 10:52
PROVIDERS: ATTENDING PHYSICIAN Internal Medicine; FAMILY PHYSICIAN Internal Medicine; REFERRING PHYSICIAN Dermatology
DX: M05.79 Rheumatoid arthritis with rheumatoid factor of multiple sites without organ or systems involvement (principal); Z51.81 Encounter for therapeutic drug level monitoring; Z85.820 Personal history of malignant melanoma of skin
CPT/HCPCS: 36415; 80053; 83615; 85025; 85652; 86140

== ENCOUNTER → 2025-01-24 12:33 | Outpatient (REF) | payer MEDICARE, SELFPAY | LOC: HWRAD 12:33 | PROVIDERS: ATTENDING PHYSICIAN Internal Medicine | DX: I10 Essential (primary) hypertension (principal); M79.89 Other specified soft tissue disorders | CPT/HCPCS: 76882 ==

== ENCOUNTER 2025-04-04 06:22 | Day surgery (SDC) | payer MEDICARE, SELFPAY | END 2025-04-04 12:36 | disposition home or self-care (01) | LOC: GI 06:22 | PROVIDERS: ATTENDING PHYSICIAN Specialist | DX: Z12.11 Encounter for screening for malignant neoplasm of colon (principal); K63.5 Polyp of colon; K57.30 Diverticulosis of large intestine without perforation or abscess without bleeding; K64.8 Other hemorrhoids; Z86.0101 Personal history of adenomatous and serrated colon polyps | CPT/HCPCS: 45380; 88305 ==